=== PATIENT | female | born 1980 | race African-American/Black ===

== ENCOUNTER 2016-07-23 13:22 | Emergency (ER) | payer OTHER ==
[~2016-07-23 13:22] MED LIST: ATARAX PO; BACTRIM DS TABL1 TA2 PO; BACTRIM DS TABL1 TAB PO; BENADRYL PO; CIPRO PO; ELIMITE60 GM TOP; FLONASE 0.05% N16 G1; HYDROXYZINE HCL25 M1 PO; MACRODANTIN PO; MEDROL PO; METRONIDAZOLE PO; NO MEDICATIONS; PERCOCET5/325 PO; PREDNISONE PO; PYRIDIUM PO; VITAMIN D2000 UNIT; ZANTAC PO; ZYRTEC10 M1
[2016-07-23 13:34] LABS: INFLUENZA A NEG (NEG); INFLUENZA B NEG (NEG)
== END 2016-07-23 14:33 | disposition home or self-care (01) ==
LOC: SED 13:22
PROVIDERS: Nurse Practitioner Family
DX: J06.9 Acute upper respiratory infection, unspecified (principal); Z88.5 Allergy status to narcotic agent
CPT/HCPCS: 87651; 87804; 99282

== ENCOUNTER 2016-09-28 22:17 | Emergency (ER) | payer OTHER ==
[2016-09-28 23:03] LABS: URINE SOURCE CLEAN CATCH
[2016-09-28 23:06] LABS: URINE APPEARANCE CLEAR; URINE BILIRUBIN NEG (NEG); URINE BLOOD NEG (NEG); URINE COLOR YELLOW; URINE GLUCOSE NEG (NORM); URINE KETONE NEG (NEG); URINE LEUKOCYTE ESTERASE NEG (NEG); URINE NITRATE NEG (NEG); URINE PH 7.5 (5-8); URINE PROTEIN NEG (NEG)
[2016-09-28 23:07] LABS: MICRO INDICATED? NO
== END 2016-09-28 23:25 | disposition home or self-care (01) ==
LOC: SED 22:17
PROVIDERS: Physician Assistant
DX: N89.8 Other specified noninflammatory disorders of vagina (principal); M54.5 Low back pain; Z79.899 Other long term (current) drug therapy; Z88.5 Allergy status to narcotic agent
CPT/HCPCS: 81003; 84703; 99283